=== PATIENT | female | born 1995 | race Caucasian/White ===

== ENCOUNTER 2022-04-04 12:42 | Outpatient (CLI) | payer OTHER | END 2022-04-04 12:43 | disposition home or self-care (01) | LOC: CSHULT 12:42 | PROVIDERS: ATTEND Family Medicine | DX: Z34.02 Encounter for supervision of normal first pregnancy, second trimester (principal); Z3A.21 21 weeks gestation of pregnancy | CPT/HCPCS: 76805 ==

== ENCOUNTER 2022-08-15 19:30 | Inpatient (IN) | payer OTHER ==
[2022-08-16 15:55] VITALS: BMI 30.7
[2022-08-16 18:00] LABS: SARS-CoV-2 NAA Rapid Test Not Detected (NotDetected)
[2022-08-16] MEDS ORDERED: HYDROcodone/Acetaminophen 5/325 mg Tablet PO PRN (19:58)
[2022-08-16] MEDS ORDERED: Ibuprofen 800 MG TAB PO PRN (19:58)
[2022-08-16] MEDS ORDERED: Promethazine HCl 25 MG/ML VIAL IM PRN (19:58)
[2022-08-16] MEDS ORDERED: Butorphanol Tartrate 1 MG/ML VIAL SLOW IVP PRN (19:58)
[2022-08-16] MEDS ORDERED: Methylergonovine 0.2 MG/ML VIAL IM PRN (19:58)
[2022-08-16] MEDS ORDERED: Lidocaine 1% (PF) 30 ML VIAL SC PRN (19:58)
[2022-08-16] MEDS ORDERED: Carboprost 250 MCG/ML AMP IM PRN (19:58)
[2022-08-16] MEDS ORDERED: hydrALAZINE 20 MG/ML VIAL SLOW IVP PRN (19:58)
[2022-08-16] MEDS ORDERED: Diphenoxylate HCl/Atropine Tablet PO PRN (19:58)
[2022-08-16] MEDS ORDERED: Acetaminophen 500 MG TAB PO PRN (19:58)
[2022-08-16] MEDS ORDERED: Ondansetron PF 4 MG/2 ML Vial IVP PRN (19:58)
[2022-08-16] MEDS ORDERED: Misoprostol 200 MCG TAB PR PRN (19:58)
[2022-08-16] MEDS ORDERED: NS w/ Oxytocin 30 units 500 ML IV SCH ×2 (20:00)
[2022-08-16 20:07] LABS: Hemoglobin 12.3 g/dL (12.0-15.5); Mean Corpuscular HGB CONC 35.1 g/dL (32.0-36.0); Mean Corpuscular Volume 88.2 fl (81.6-98.3); Mean Platelet Volume 12.3 fl (7.4-10.4); Platelet Count 224 10x3/uL (150-450); RBC Distribution Width 12.1 % (11.5-14.5); Red Blood Cell (RBC) Count 3.97 10x6/uL (3.90-5.03); White Blood Cell (WBC) Count 7.1 10x3/uL (3.5-10.5)
[2022-08-16] MEDS: Lactated Ringer's 1,000 ML IV SCH (20:32)
[2022-08-16] MEDS: Misoprostol 100 MCG TAB PO SCH (20:32)
[2022-08-16 20:35] LABS: HBSAg Index 0.15 S/CO (0-0.99); Hep B Surf Ag Non-Reactive S/CO (NonReactive)
[2022-08-16 20:37] LABS: Syphilis Antibody Nonreactive (Nonreactive); Syphilis Antibody Index 0.03 S/CO (<1.00 Non-Reactive)
[2022-08-17] MEDS: Misoprostol 100 MCG TAB PO SCH (04:44)
[2022-08-17] MEDS: Lactated Ringer's 1,000 ML IV SCH (04:47)
[2022-08-17] MEDS ORDERED: Fentanyl 2 mcg/Bup 0.1% Cadd 100 ML ONE (08:15)
[2022-08-17] MEDS ORDERED: Naloxone HCl 0.4 mg/ml Vial IVP PRN ×2 (09:41)
[2022-08-17] MEDS ORDERED: diphenhydrAMINE 50 MG/ML VIAL IVP PRN (09:41)
[2022-08-17] MEDS ORDERED: ePHEDrine Sulfate 50 MG/10 ML VIAL SLOW IVP PRN (09:41)
[2022-08-17] MEDS ORDERED: Moisturizing Cream (Eucerin) 113 GM JAR TOP PRN (09:41)
[2022-08-17] MEDS ORDERED: Acetaminophen 325 MG TAB PO PRN (09:41)
[2022-08-17] MEDS ORDERED: Ondansetron PF 4 MG/2 ML Vial IVP PRN ×2 (09:41→14:44)
[2022-08-17] MEDS ORDERED: Promethazine HCl 25 MG/ML VIAL IM PRN ×2 (09:41→14:44)
[2022-08-17] MEDS ORDERED: Communication Order-Pharmacy FS SCH (09:45)
[2022-08-17] MEDS ORDERED: Fentanyl 2 mcg/Bupivacaine 0.1% Cassette 100 ML EPIDURAL SCH (09:45)
[2022-08-17] MEDS ORDERED: Lactated Ringer's 500 ML IV PRN (09:46)
[2022-08-17] MEDS ORDERED: Benzocaine-Menthol 82.5 ML CAN TOP PRN (14:44)
[2022-08-17] MEDS ORDERED: Milk Of Magnesia 30 ML UDCUP PO PRN (14:44)
[2022-08-17] MEDS ORDERED: Bisacodyl 10 MG SUPP PR PRN (14:44)
[2022-08-17] MEDS ORDERED: diphenhydrAMINE 25 MG CAP PO PRN (14:44)
[2022-08-17] MEDS ORDERED: Preparation H Ointment 28 GM TUBE PR PRN (14:44)
[2022-08-17] MEDS ORDERED: HYDROcodone/Acetaminophen 5/325 mg Tablet PO PRN ×2 (14:44)
[2022-08-17] MEDS ORDERED: hydrALAZINE 20 MG/ML VIAL SLOW IVP PRN (14:44)
[2022-08-17] MEDS ORDERED: Lanolin Ointment 7 GM TUBE TOP PRN (14:44)
[2022-08-17] MEDS ORDERED: Boostrix 0.5 ML (Tdap) VIAL (>/=7 yrs of age) IM ONE (14:44)
[2022-08-17] MEDS: Ibuprofen 800 MG TAB PO SCH ×2 (16:41→23:14)
[2022-08-17] MEDS: Ferrous Sulfate 325 MG TAB PO SCH (16:43)
[2022-08-17] MEDS: Docusate 100 MG CAP PO SCH (20:15)
[2022-08-18] MEDS: Misoprostol 100 MCG TAB PO SCH (02:43)
[2022-08-18] MEDS: Ibuprofen 800 MG TAB PO SCH ×2 (06:54→14:06)
[2022-08-18 08:18] VITALS: BP 112/60; TEMP 97.7
[2022-08-18] MEDS ORDERED: Prenatal Vitamin 1 TAB PO SCH (09:00)
[2022-08-18] MEDS: Docusate 100 MG CAP PO SCH (14:07)
[2022-08-18] MEDS: Ferrous Sulfate 325 MG TAB PO SCH (14:07)
== END 2022-08-18 14:20 | disposition home or self-care (01) | DRG 807 ==
LOC: CSHLD 08-16 15:21 → CSHPP 08-17 15:00
PROVIDERS: ADMIT Family Medicine; ATTEND Family Medicine
PROC: 10E0XZZ Delivery of Products of Conception, External Approach (ICD-10-PCS; principal; 2022-08-17)
PROC: 10907ZC Drainage of Amniotic Fluid, Therapeutic from Products of Conception, Via Natural or Artificial Opening (ICD-10-PCS; 2022-08-17)
PROC: 3E0P7VZ Introduction of Hormone into Female Reproductive, Via Natural or Artificial Opening (ICD-10-PCS; 2022-08-17)
PROC: 0HQ9XZZ Repair Perineum Skin, External Approach (ICD-10-PCS; 2022-08-17)
DX: O70.0 First degree perineal laceration during delivery (principal); Z37.0 Single live birth; Z3A.40 40 weeks gestation of pregnancy; Z20.822 Contact with and (suspected) exposure to COVID-19
CPT/HCPCS: 36415; 51702; 85027; 86780; 86850; 86900; 86901; 87340; J0595; J2405; J7120; U0002